=== PATIENT | male | born 1995 | race Caucasian/White ===

== ENCOUNTER 2022-04-17 18:34 | Emergency (ER) | payer BC, OTHER ==
[~2022-04-17] VITALS: Ht 175.3 cm; Wt 81.6 kg
--- NOTE | 2022-04-17 18:34 | NUR ---
BROUGHT BACK TO BED #5 AND TRIAGED. REPORT GIVEN TO ASSOCIATE APPLICATION DEVELOPER
[2022-04-17 18:35] VITALS: BP_SYST 118
--- NOTE | 2022-04-17 18:49 | NUR ---
PT STATES HE WORKS IN THE [place] AND FEELS LIKE HE HAS OVERDONE IT YESTERDAY AND TODAY. PT STATES HE FEELS LIGHTHEADED, WEAK AND HAS MUSCLE CRAMPING. TRIED TO REHYDRATE LAST NIGHT, BUT WORKED AGAIN TODAY. VSS, NO DISTRESS
[2022-04-17] MEDS ORDERED: NACL 0.9% 1,000 ML IV ONE (19:15)
--- NOTE | 2022-04-17 19:15 | NUR ---
Report received from Mandeep UPTON
--- NOTE | 2022-04-17 19:20 | NUR ---
# 20 gauge angiocath placed to right forearm. Use of asceptic technique. Opsite placed over site. Blood return noted. Blood for lab drawn from site. Flushed with 10 cc of normal saline. No evidence of infiltration noted. Patient tolerated well.
[2022-04-17 19:52] LABS: CALCIUM 8.7 mg/dL (8.4-11.0); CREATININE 1.19 mg/dL (0.55-1.30); POTASSIUM 3.7 mmol/L (3.5-5.1)
--- NOTE | 2022-04-17 19:53 | NUR ---
Pt given ice water per pt request
[2022-04-17 19:58] LABS: ALBUMIN 4.4 g/dL (3.4-4.8); TOTAL BILIRUBIN 0.5 mg/dL (0.0-1.0)
[2022-04-17 20:32] LABS: EOSINOPHILS # (AUTO) 0.1 K/uL (0.0-0.4); RED BLOOD CELL COUNT(AUTO) 5.02 MIL/uL (4.2-6.2); WHITE BLOOD COUNT (AUTO) 7.6 K/uL (4.8-10.8)
[2022-04-17 20:35] LABS: CKMB RELATIVE INDEX 0.8 (0.0-2.9); CREATINE KINASE MB 3.9 ng/mL (0-3.6)
[2022-04-17 20:40] LABS: BASOPHILS % (AUTO) 0.4 % (0.0-2.0); EOSINOPHILS % (AUTO) 1.4 % (0.0-4.0); LYMPHOCYTES # (AUTO) 2.1 K/uL (1.0-5.5); LYMPHOCYTES % (AUTO) 27.8 % (20.5-51.5); MEAN CORPUSCULAR HEMOGLOBIN 32 pg (27-31); MEAN CORPUSCULAR HGB CONC 35 % (32-36); MEAN CORPUSCULAR VOLUME 92 fL (79.0-98.0); MONOCYTES # (AUTO) 0.6 K/uL (0.0-1.0); MONOCYTES % (AUTO) 8.3 % (1.7-9.3); NEUTROPHILS # (AUTO) 4.7 K/uL (1.8-7.7); NEUTROPHILS % (AUTO) 62.1 % (40.0-70.0); PLATELET COUNT (AUTO) 163 K/uL (130-430); RED CELL DISTRIBUTION WIDTH 12.6 % (9.0-15.0)
--- NOTE | 2022-04-17 20:55 | NUR ---
Patient given written and verbal discharge instructions and verbalizes understanding. ER MD discussed with patient the results and treatment provided. Patient in stable condition. ID arm band removed. IV catheter removed intact and dressing applied, no active bleeding. Rx of given. Patient educated on pain management and to follow up with PMD. Pain Scale verbal pain scale. Opportunity for questions provided and answered. Medication side effect fact sheet provided.
[2022-04-17 20:56] VITALS: BP_SYST 124
== END 2022-04-17 20:56 | disposition home or self-care (01) ==
LOC: SED 18:34
DX: E86.0 Dehydration (principal)
CPT/HCPCS: 36415; 80053; 82550; 82553; 85025; 96360; 99283; J7030